=== PATIENT | female | born 1970 | race Hispanic/Latino ===

== ENCOUNTER 2017-03-20 18:00 | Outpatient (CLI) | payer OTHER | END 2017-03-20 18:01 | disposition home or self-care (01) | LOC: SLEEPLAB 18:00 | PROVIDERS: ATTEND Specialist | DX: G47.33 Obstructive sleep apnea (adult) (pediatric) (principal); R06.3 Periodic breathing; G47.10 Hypersomnia, unspecified | CPT/HCPCS: 95806 ==

== ENCOUNTER 2021-06-25 11:57 | Outpatient (CLI) | payer BC ==
[2021-06-25 22:56] LABS: SARS-CoV-2 PCR by NAA Not Detected (NotDetected)
== END 2021-06-25 11:58 | disposition home or self-care (01) ==
LOC: LABBT 11:57
PROVIDERS: ATTEND Internal Medicine Gastroenterology
DX: Z20.822 Contact with and (suspected) exposure to COVID-19 (principal)
CPT/HCPCS: U0003; U0005

== ENCOUNTER 2021-06-28 08:43 | Outpatient (CLI) | payer BC | END 2021-06-28 08:44 | disposition home or self-care (01) | LOC: SCSMRI 08:43 | PROVIDERS: ATTEND Internal Medicine Gastroenterology | DX: R93.2 Abnormal findings on diagnostic imaging of liver and biliary tract (principal); K52.9 Noninfective gastroenteritis and colitis, unspecified; K80.50 Calculus of bile duct without cholangitis or cholecystitis without obstruction; K21.9 Gastro-esophageal reflux disease without esophagitis; M25.50 Pain in unspecified joint | CPT/HCPCS: 74183 ==

== ENCOUNTER → 2021-06-29 | Day surgery (SDC) | payer BC | END | disposition home or self-care (01) | LOC: SDC 07:34 | PROVIDERS: ATTEND Internal Medicine Gastroenterology | DX: K21.9 Gastro-esophageal reflux disease without esophagitis (principal); R93.2 Abnormal findings on diagnostic imaging of liver and biliary tract; K52.9 Noninfective gastroenteritis and colitis, unspecified; M25.50 Pain in unspecified joint; K80.50 Calculus of bile duct without cholangitis or cholecystitis without obstruction; Z88.0 Allergy status to penicillin | CPT/HCPCS: 91034 ==

== ENCOUNTER 2022-06-30 12:00 | Outpatient (CLI) | payer BC | END 2022-06-30 12:01 | disposition home or self-care (01) | LOC: ULT 12:00 | PROVIDERS: ATTEND Surgery Surgery of the Hand | DX: I73.00 Raynaud's syndrome without gangrene (principal) | CPT/HCPCS: 93923 ==